=== PATIENT | male | born 1985 | race Caucasian/White ===

== ENCOUNTER 2021-04-01 07:03 | Day surgery (SDC) | payer OTHER ==
[~2021-04-01] VITALS: Ht 172.7 cm; Wt 100.7 kg
[~2021-04-01 07:03] MED LIST: LIDOCAINE 2% 100MG/5ML SDV (FOR ANES.) As Ordered ONE; NS 1,000 ML IV ONE; OMEP-218 PO; fentaNYL 100 MCG/2 ML INJECTION (J3010) As Ordered ONE; propofoL 500 MG/50 ML VIAL As Ordered ONE
--- NOTE | 2021-04-01 08:28 | ROOR ---
Patient Name: Blake Scruggs Procedure Date: 04/01/2021 7:35 AM Date of : 1985 Age: 36 Room: [facility] Gender: Male Note Status: Finalized Procedure: Upper GI endoscopy Indications: Heartburn, Suspected gastro-esophageal reflux disease Providers: Billy Malik MD Referring MD: HENRY DUMONT MD Requesting Provider: Medicines: Monitored Anesthesia Care Complications: No immediate complications. Procedure: Pre-Anesthesia Assessment: - Prior to the procedure, a History and Physical was performed, and patient medications and allergies were reviewed. The patient is competent. The risks and benefits of the procedure and the sedation options and risks were discussed with the patient. All questions were answered and informed consent was obtained. Patient identification and proposed procedure were verified by the physician, the nurse and the anesthesiologist in the procedure room. Mental Status Examination: alert and oriented. Airway Examination: normal oropharyngeal airway and neck mobility. Respiratory Examination: clear to auscultation. CV Examination: normal. Prophylactic Antibiotics: The patient does not require prophylactic antibiotics. Prior Anticoagulants: The patient has taken no previous anticoagulant or antiplatelet agents. ASA Grade Assessment: II - A patient with mild systemic disease. After reviewing the risks and benefits, the patient was deemed in satisfactory condition to undergo the procedure. The anesthesia plan was to use monitored anesthesia care (MAC). Immediately prior to administration of medications, the patient was re-assessed for adequacy to receive sedatives. The heart rate, respiratory rate, oxygen saturations, blood pressure, adequacy of pulmonary ventilation, and response to care were monitored throughout the procedure. The physical status of the patient was re-assessed after the procedure. The Endoscope was introduced through the mouth, and advanced to the second part of duodenum. The upper GI endoscopy was accomplished without difficulty. The patient tolerated the procedure well. Findings: The examined esophagus was normal. The Z-line was regular and was found 41 cm from the incisors. Scattered mild inflammation characterized by erythema and granularity was found in the gastric antrum. Biopsies were taken with a cold forceps for Helicobacter pylori testing. Verification of patient identification for the specimen was done by the physician and nurse using the patient's name, date and medical record number. Estimated blood loss was minimal. The duodenal bulb, second portion of the duodenum and third portion of the duodenum were normal. The IVORY capsule with delivery system was introduced through the mouth and advanced into the esophagus, such that the IVORY pH capsule was positioned 35 cm from the incisors, which was 6 cm proximal to the GE junction. Suction was applied to the well of the IVORY pH capsule to suck in the adjacent mucosa of the esophagus using the external vacuum pump set at a minimum vacuum pressure of 550 mmHg for 30 seconds. The IVORY pH capsule was then deployed by depressing the plunger on top of the handle to advance the locking pin into the mucosa, thereby attaching the capsule to the esophagus. The plunger was then rotated a quarter turn clockwise to release the capsule from the delivery system. The delivery system was then withdrawn. Endoscopy was utilized for probe placement and diagnostic evaluation. The scope was reinserted to evaluate placement of the IVORY capsule. Visualization showed the IVORY capsule to be in an appropriate position. Impression: - Normal esophagus. - Z-line regular, 41 cm from the incisors. - Gastritis. Biopsied. - Normal duodenal bulb, second portion of the duodenum and third portion of the duodenum. Recommendation: - Patient has a contact number available for emergencies. The signs and symptoms of potential delayed complications were discussed with the patient. Return to normal activities tomorrow. Written discharge instructions were provided to the patient. - High fiber diet. - Continue present medications. - Await pathology results. - Follow an antireflux regimen. - Telephone GI office for pathology results in 2 weeks. - Return to GI clinic if persistent symptoms or new symptoms. - Return to primary care physician. Procedure Code(s): --- Professional --- 79969, Esophagogastroduodenoscopy, flexible, transoral; with biopsy, single or multiple Diagnosis Code(s): --- Professional --- K29.70, Gastritis, unspecified, without bleeding R12, Heartburn CPT copyright 2019 [employer]. All rights reserved. The codes documented in this report are preliminary and upon girls swimming coach review may be revised to meet current compliance requirements. Billy Malik MD Billy Malik MD 04/01/2021 8:27:59 AM Electronically signed by Billy Malik MD Number of Addenda: 0 Note Initiated On: 04/01/2021 7:35 AM Estimated Blood Loss: Estimated blood loss was minimal.
--- NOTE | 2021-04-01 08:34 | ROOR ---
Patient Name: Blake Scruggs Procedure Date: 04/01/2021 7:36 AM Date of : 1985 Age: 36 Room: [facility] Gender: Male Note Status: Finalized Procedure: Colonoscopy Indications: Chronic diarrhea Providers: Billy Malik MD Referring MD: HENRY DUMONT MD Requesting Provider: Medicines: Monitored Anesthesia Care Complications: No immediate complications. Procedure: Pre-Anesthesia Assessment: - Prior to the procedure, a History and Physical was performed, and patient medications and allergies were reviewed. The patient is competent. The risks and benefits of the procedure and the sedation options and risks were discussed with the patient. All questions were answered and informed consent was obtained. Patient identification and proposed procedure were verified by the physician, the nurse and the anesthesiologist in the procedure room. Mental Status Examination: alert and oriented. Airway Examination: normal oropharyngeal airway and neck mobility. Respiratory Examination: clear to auscultation. CV Examination: normal. Prophylactic Antibiotics: The patient does not require prophylactic antibiotics. Prior Anticoagulants: The patient has taken no previous anticoagulant or antiplatelet agents. ASA Grade Assessment: II - A patient with mild systemic disease. After reviewing the risks and benefits, the patient was deemed in satisfactory condition to undergo the procedure. The anesthesia plan was to use monitored anesthesia care (MAC). Immediately prior to administration of medications, the patient was re-assessed for adequacy to receive sedatives. The heart rate, respiratory rate, oxygen saturations, blood pressure, adequacy of pulmonary ventilation, and response to care were monitored throughout the procedure. The physical status of the patient was re-assessed after the procedure. The Colonoscope was introduced through the anus and advanced to the terminal ileum, with identification of the appendiceal orifice and IC valve. The colonoscopy was performed without difficulty. The patient tolerated the procedure well. The quality of the bowel preparation was good. The terminal ileum, ileocecal valve, appendiceal orifice, and rectum were photographed. Scope insertion time was 2 minutes. Scope withdrawal time was 8 minutes. The total duration of the procedure was 10 minutes. Findings: The perianal and digital rectal examinations were normal. The terminal ileum appeared normal. A 20 mm polypoid lesion was found at the appendiceal orifice. 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 No bleeding was present. Mucosa was biopsied with a cold forceps for histology. One specimen bottle was sent to pathology. Normal mucosa was found in the entire colon. Biopsies for histology were taken with a cold forceps from the right colon, left colon and rectosigmoid colon for evaluation of microscopic colitis. Non-bleeding external and internal hemorrhoids were found during retroflexion. The hemorrhoids were medium-sized. Impression: - The examined portion of the ileum was normal. - Likely benign polypoid lesion at the appendiceal orifice. Biopsied. - Normal mucosa in the entire examined colon. Biopsied. - Non-bleeding external and internal hemorrhoids. Recommendation: - Patient has a contact number available for emergencies. The signs and symptoms of potential delayed complications were discussed with the patient. Return to normal activities tomorrow. Written discharge instructions were provided to the patient. - High fiber diet. - Continue present medications. - Await pathology results. - Repeat colonoscopy date to be determined after pending pathology results are reviewed for surveillance based on pathology results. - Repeat colonoscopy at age 48 for screening purposes. - Telephone GI clinic for pathology results in 2 weeks. - Return to GI clinic if persistent symptoms or new symptoms. Procedure Code(s): --- Professional --- 87591, Colonoscopy, flexible; with biopsy, single or multiple Diagnosis Code(s): --- Professional --- K64.8, Other hemorrhoids D49.0, Neoplasm of unspecified behavior of digestive system K52.9, Noninfective gastroenteritis and colitis, unspecified CPT copyright 2019 [employer]. All rights reserved. The codes documented in this report are preliminary and upon invoice coder review may be revised to meet current compliance requirements. Billy Malik MD Billy Malik MD 04/01/2021 8:33:47 AM Electronically signed by Billy Malik MD Number of Addenda: 0 Note Initiated On: 04/01/2021 7:36 AM Estimated Blood Loss: Estimated blood loss was minimal.
[2021-04-01 08:41] VITALS: BP 129/70
== END 2021-04-01 08:55 | disposition home or self-care (01) ==
LOC: M OPP 07:03
PROVIDERS: ATTEND Internal Medicine Gastroenterology
DX: D49.0 Neoplasm of unspecified behavior of digestive system (principal); K64.8 Other hemorrhoids; K52.9 Noninfective gastroenteritis and colitis, unspecified; K29.70 Gastritis, unspecified, without bleeding; R12 Heartburn
CPT/HCPCS: 43239; 45380; 88305; J3010

== ENCOUNTER → 2022-02-17 | Outpatient (CLI) | payer OTHER ==
[~2022-02-17] MED LIST changes: -LIDOCAINE 2% 100MG/5ML SDV (FOR ANES.) As Ordered ONE; -NS 1,000 ML IV ONE; +OMEP-173 PO; -OMEP-218 PO; -fentaNYL 100 MCG/2 ML INJECTION (J3010) As Ordered ONE; -propofoL 500 MG/50 ML VIAL As Ordered ONE
[2022-02-17 07:46] LABS: BASO # 0.1 10^3/uL (0.0-0.2); EOS # 0.4 10^3/uL (0.0-0.5); EOS % 5.6 % (0.0-3.0); HEMATOCRIT 45.5 % (42.0-52.0); HEMOGLOBIN 14.9 g/dl (13.5-17.5); LYMPH # 2.1 10^3/uL (1.5-5.0); LYMPH % 28.6 % (24.0-44.0); MEAN CORPUSCULAR HEMOGLOBIN 27.6 pg (27.0-33.0); MEAN CORPUSCULAR HGB CONC 32.7 g/dl (32.0-36.5); MEAN CORPUSCULAR VOLUME 84.3 fl (80.0-96.0); MONO # 0.7 10^3/uL (0.0-0.8); MONO % 9.7 % (2.0-8.0); NEUTROPHILS # 3.8 10^3/uL (1.5-8.5); NEUTROPHILS % 52.7 % (36.0-66.0); PLATELET COUNT, AUTOMATED 255 10^3/uL (150-450); WHITE BLOOD COUNT 7.2 10^3/uL (4.0-10.0)
== END ==
LOC: M LAB 07:18
PROVIDERS: ATTEND Physician Assistant
DX: R79.89 Other specified abnormal findings of blood chemistry (principal)
CPT/HCPCS: 36415; 84403; 85025; G0103

== ENCOUNTER → 2022-05-25 | Outpatient (CLI) | payer OTHER ==
[2022-05-25 09:17] LABS: BASO # 0.1 10^3/uL (0.0-0.2); BASO % 0.9 % (0.0-1.0); EOS # 0.3 10^3/uL (0.0-0.5); EOS % 4.4 % (0.0-3.0); HEMATOCRIT 46.9 % (42.0-52.0); HEMOGLOBIN 15.5 g/dl (13.5-17.5); MEAN CORPUSCULAR HEMOGLOBIN 27.8 pg (27.0-33.0); MEAN CORPUSCULAR VOLUME 84.2 fl (80.0-96.0); MONO # 0.7 10^3/uL (0.0-0.8); MONO % 9.5 % (2.0-8.0); NEUTROPHILS # 4.4 10^3/uL (1.5-8.5); NEUTROPHILS % 57.4 % (36.0-66.0); PLATELET COUNT, AUTOMATED 255 10^3/uL (150-450); RED BLOOD COUNT 5.57 10^6/uL (4.30-6.10); WHITE BLOOD COUNT 7.7 10^3/uL (4.0-10.0)
== END ==
LOC: M LAB 08:44
PROVIDERS: ATTEND Physician Assistant
DX: R79.89 Other specified abnormal findings of blood chemistry (principal)

== ENCOUNTER → 2022-08-24 | Outpatient (CLI) | payer OTHER ==
[2022-08-24 08:45] LABS: BASO # 0.1 10^3/uL (0.0-0.2); BASO % 0.8 % (0.0-1.0); EOS # 0.3 10^3/uL (0.0-0.5); EOS % 3.7 % (0.0-3.0); HEMATOCRIT 45.8 % (42.0-52.0); LYMPH # 1.9 10^3/uL (1.5-5.0); LYMPH % 25.4 % (24.0-44.0); MEAN CORPUSCULAR HEMOGLOBIN 27.6 pg (27.0-33.0); MEAN CORPUSCULAR HGB CONC 32.8 g/dl (32.0-36.5); MEAN CORPUSCULAR VOLUME 84.3 fl (80.0-96.0); MONO # 0.7 10^3/uL (0.0-0.8); MONO % 9.5 % (2.0-8.0); NEUTROPHILS # 4.5 10^3/uL (1.5-8.5); NEUTROPHILS % 58.9 % (36.0-66.0); PLATELET COUNT, AUTOMATED 235 10^3/uL (150-450); RED BLOOD COUNT 5.43 10^6/uL (4.30-6.10); WHITE BLOOD COUNT 7.6 10^3/uL (4.0-10.0)
== END ==
LOC: M LAB 07:57
PROVIDERS: ATTEND Physician Assistant
DX: R79.89 Other specified abnormal findings of blood chemistry (principal)